=== PATIENT | male | born 1955 | race African-American/Black ===

== ENCOUNTER 2017-09-28 11:46 | Emergency (ER) | payer MEDICAID ==
[~2017-09-28] VITALS: Ht 182.9 cm; Wt 98.4 kg
[2017-09-28 12:03] VITALS: BP_SYST 128
[2017-09-28 13:00] VITALS: BP_SYST 124
== END 2017-09-28 13:00 | disposition home or self-care (01) ==
LOC: SED 11:46
DX: G51.0 Bell's palsy (principal); J45.909 Unspecified asthma, uncomplicated; Z88.6 Allergy status to analgesic agent
CPT/HCPCS: 99283

== ENCOUNTER 2017-10-11 12:59 | Emergency (ER) | payer MEDICAID ==
[~2017-10-11] VITALS: Ht 182.9 cm; Wt 98.4 kg
[2017-10-11 13:00] VITALS: BP_SYST 138
[2017-10-11 13:32] VITALS: BP_SYST 141
== END 2017-10-11 13:32 | disposition home or self-care (01) ==
LOC: SED 12:59
DX: G51.0 Bell's palsy (principal); J45.909 Unspecified asthma, uncomplicated; R03.0 Elevated blood-pressure reading, without diagnosis of hypertension; Z88.6 Allergy status to analgesic agent
CPT/HCPCS: 99282

== ENCOUNTER 2018-05-12 16:17 | Emergency (ER) | payer SELFPAY ==
[~2018-05-12] VITALS: Ht 182.9 cm; Wt 98.4 kg
[2018-05-12 16:25] VITALS: BP_SYST 134
[2018-05-12 16:53] VITALS: BP_SYST 134
[2018-05-12] MEDS ORDERED: DEXAMETHASONE SOD PHOSPHATE 10 MG/ML VIAL IVP ONE (17:00)
== END 2018-05-12 16:53 | disposition home or self-care (01) ==
LOC: SED 16:17
DX: J06.9 Acute upper respiratory infection, unspecified (principal); R03.0 Elevated blood-pressure reading, without diagnosis of hypertension; J45.909 Unspecified asthma, uncomplicated; Z88.6 Allergy status to analgesic agent
CPT/HCPCS: 99283

== ENCOUNTER 2023-01-20 13:38 | Emergency (ER) | payer OTHER ==
[~2023-01-20] VITALS: Ht 182.9 cm; Wt 96.2 kg
[2023-01-20 14:02] VITALS: BP_SYST 145; PULSE 72; RESP 18; TEMP 98.2; O2SAT 96
[2023-01-20] MEDS ORDERED: KETOROLAC TROMETHAMINE 60 MG/2 ML VIAL IM ONE (14:30)
[2023-01-20] MEDS ORDERED: SOM350 PO (17:01)
[2023-01-20] MEDS ORDERED: DICL20GE TP (17:01)
[2023-01-20] MEDS ORDERED: DICL75TA5 PO (17:01)
[2023-01-20 17:16] VITALS: BP_SYST 135; PULSE 68; RESP 20; TEMP 99.2; O2SAT 96
== END 2023-01-20 17:17 | disposition home or self-care (01) ==
LOC: SED 13:38
DX: S39.012A Strain of muscle, fascia and tendon of lower back, initial encounter (principal); J45.909 Unspecified asthma, uncomplicated; Z88.5 Allergy status to narcotic agent; Z79.899 Other long term (current) drug therapy; X58.XXXA Exposure to other specified factors, initial encounter; Y93.89 Activity, other specified; Y92.89 Other specified places as the place of occurrence of the external cause; Y99.8 Other external cause status
CPT/HCPCS: 99285; 72131; 93005; 72040; 72100; 73030; 76376; 96372; J1885